=== PATIENT | male | born 1935 | race Hispanic/Latino ===

== ENCOUNTER 2017-06-04 18:08 | Inpatient (IN) | payer MEDICARE, MEDICAID ==
[~2017-06-04 18:08] MED LIST: ISOVUE-370 76%-LOCM 1 ML ONE
[2017-06-04 18:42] LABS: #Basophils 0.1 thou/uL (0.0-0.2); #Lymphocytes 0.9 thou/uL (1.20-3.40); #Monocytes 0.6 thou/uL (0.11-0.59); #Neutrophils 6.3 thou/uL (1.40-6.50); %Basophils 0.8 % (0.0-1.0); %Eosinophils 0.3 % (0.0-10.0); %Lymphocytes 11.2 % (21.0-51.0); %Neutrophils 79.8 % (42.0-75.0); Hemoglobin 15.7 g/dL (14.0-18.0); Mean Corpuscular HGB CONC 35.3 g/dL (32.0-36.0); Mean Corpuscular Hemoglobin 34.5 pg (27.0-31.0); Mean Corpuscular Volume 97.8 fl (80.0-94.0); Mean Platelet Volume 6.7 fL (7.4-10.4); Platelet Count 149 thou/uL (130-400); RBC Distribution Width 12.5 % (11.5-14.5); Red Blood Cell (RBC) Count 4.55 mill/uL (4.70-6.10); White Blood Cell (WBC) Count 7.9 thou/uL (4.8-10.8)
--- NOTE | 2017-06-04 18:46 | RAD ---
PA CHEST: Indication: Fever and cough. IMPRESSION: No focal consolidation to suggest pneumonia. The examination is not appreciably changed from comparis on of 12-03-08. POS: [facility]
[2017-06-04 19:01] LABS: ALT (SGPT) 25 U/L (8-55); AST (SGOT) 23 U/L (5-34); Albumin 4.1 g/dL (3.4-4.8); Alkaline Phosphatase 86 U/L (40-150); Anion Gap 15 mmol/L (10-20); BUN (Urea Nitrogen) 13 mg/dL (8.4-25.7); Bilirubin, Total 0.9 mg/dL (0.2-1.2); CK (CPK) 69 U/L (30-200); Calc. Creatinine Clearance 0 mL/min (70-130); Calcium 8.6 mg/dL (7.8-10.44); Carbon Dioxide 21 mmol/L (23-31); Chloride 101 mmol/L (98-107); Estimated GFR-MDRD 75; Globulin 2.9 g/dL (2.4-3.5); Glucose 154 mg/dL (83-110); Potassium 3.3 mmol/L (3.5-5.1); Sodium 134 mmol/L (136-145)
[2017-06-04 19:11] LABS: CKMB 0.6 ng/mL (0-6.6); Troponin I Less than 0.010 ng/mL (< 0.028)
[2017-06-04 20:35] LABS: Bilirubin Negative (Negative); Blood, Urine Trace (Negative); Clarity CLEAR (Clear); Glucose, Urine (Dipstick) Negative (Negative); Leukocyte Negative (Negative); Nitrite Negative (Negative); Protein, Urine (Dipstick) 100 mg/dL (Neg-Trace); Specific Gravity, Urine 1.016 (1.002-1.036); Urobilinogen 0.2 mg/dL (0.2-1.0); pH, Urine 5.5 (5.0-9.0)
[2017-06-04 20:39] LABS: Bacteria/HPF None Seen HPF (None Seen); Hyaline Casts/LPF 0-3 HYALINE CAST LPF (0-3 Hyaline); Pathc Cast-AUWi Flag 0.29 (0-2.49); RBC/HPF 0-3 HPF (0-3); Squamous Epithelial 0-3 HPF (0-3); WBC/HPF 0-3 HPF (0-3)
[2017-06-04 20:40] LABS: Renal Epithelial None Seen HPF (0-3); Transitional Epithelial NONE SEEN HPF (0-3)
--- NOTE | 2017-06-04 22:15 | CT ---
CT OF THE ABDOMEN AND PELVIS WITH IV CONTRAST: Indication: Fever, abdominal pain, dysuria. FINDINGS: There is bibasilar atelectasis. The liver, pancreas, adrenal glands and kidneys appear within normal limits. No hydronephrosis is melinda dent. The spleen appears within normal limits. Motion artifact slightly imaged detail of the upper ab domen. No drainable fluid collection is evident. The prostate is enlarged measuring 5.8 cm. There is moderate distention of the bladder. There are a few scattered diverticula involving the colon without overt evidence of diverticulitis. There is some fluid density seen within the region of the hepatic flexure and proximal transverse colon, nonspecific. Small bowel is of normal caliber. No drainable fl uid collection is evident. There are scattered degenerative and osteoarthritic change. IMPRESSION: 1. Prominent enlargement of the prostate with moderate distention of the bladder. 2. Fluid density seen within the region of the transverse colon and hepatic flexure may be seen with mild colitis. 3. Diverticulosis. 4. Scattered vascular calcification of the abdominal/pelvic vasculature. POS: [facility]
[2017-06-04] MEDS ORDERED: Calcium Carbonate 500 MG ChewTAB PO PRN (22:33)
[2017-06-04] MEDS ORDERED: Bisacodyl 5 MG TAB PO PRN ×2 (22:33)
[2017-06-04] MEDS ORDERED: Loratadine 10 MG TAB PO PRN (22:33)
[2017-06-04] MEDS ORDERED: traMADol HCl 50 MG TAB PO PRN (22:33)
[2017-06-04] MEDS ORDERED: Senokot 8.6 MG TAB PO PRN ×2 (22:33)
[2017-06-04] MEDS ORDERED: Ondansetron HCl/PF 4 MG/2 ML Vial IVP PRN ×2 (22:33)
[2017-06-04] MEDS ORDERED: cloNIDine 0.1 MG TAB PO PRN (22:33)
[2017-06-04] MEDS ORDERED: Diabetic Tussin 200 MG/10 ML UDCUP PO PRN (22:33)
[2017-06-04] MEDS ORDERED: Acetaminophen 325 MG TAB PO PRN (22:33)
[2017-06-04] MEDS ORDERED: Nitroglycerin 0.4 MG TAB (25 Tab Bottle) SL PRN (22:33)
[2017-06-04] MEDS ORDERED: Mag-Al 1200 mg/1200 mg/30 ML UDCUP PO PRN (22:33)
[2017-06-04] MEDS ORDERED: hydrALAZINE 20 MG/ML VIAL SLOW IVP PRN (22:33)
[2017-06-04] MEDS ORDERED: Benzonatate 100 MG CAP PO PRN (22:33)
[2017-06-04] MEDS ORDERED: metroNIDAZOLE 500 MG/100 ML BAG ONE (22:39)
[2017-06-04 23:00] LABS: Lactic Acid 3.1 mmol/L (0.5-2.2)
[2017-06-04] MEDS ORDERED: Potassium Chloride 40 MEQ in Sodium Chloride 0.9% 500 ML IVPB SCH (23:00)
[2017-06-04 23:10] LABS: Legionella Urinary Ag Negative (Negative); Strep pneumo Urine Ag NEGATIVE (NEGATIVE)
[2017-06-04 23:13] LABS: Troponin I 0.012 ng/mL (< 0.028)
[2017-06-04] MEDS: Sodium Chloride 0.9% 1,000 ML IV SCH (23:46)
[2017-06-05 00:05] VITALS: BMI 21.4
[2017-06-05] MEDS ORDERED: Nitroglycerin 0.4 MG TAB (25 Tab Bottle) SL PRN (01:07)
--- NOTE | 2017-06-05 02:34 | HP ---
DATE OF ADMISSION: 06/04/2017 PRIMARY CARE PHYSICIAN: Dr. Teo Owens. CHIEF COMPLAINT: Diarrhea, abdominal pain, and cough with fever and chills. HISTORY OF PRESENTING ILLNESS: Mr. Arthur is a pleasant 82-year-old male with past medical history of hypertension and dyslipidemia, who presented to the ER with above-mentioned complaints. History is mainly obtained by the patient and daughter with the help of an resource conservation manager present in the room. The patient and family is mainly Urdu speaking only. According to them, the patient started to have clear productive cough for the last 4 days, which has gotten worse. He also feels that his bladder is full and his abdomen is full. He started to have fe kimberly with chills and then subsequently started to have diarrhea with nausea for the last 4 days. He i s not having any vomiting. He denies any hematochezia or melena. He denies any sick contacts. No r ecent travels and no recent antibiotics. He also has some associated shortness of breath with exerti on. He could not report any relieving factors. He has also noticed himself to be having some wheezi ng. Upon presentation to the emergency room, he was febrile with a temperature of 102.1 and tachycardic w ith a heart rate of 113. His blood pressure was 130/81 and he was saturating 98% on room air. He un derwent general workup including a chest x-ray, which was unremarkable. He had a 12-lead EKG done, w hich showed sinus tachycardia with first-degree AV block, otherwise unremarkable. Because of the com plaints of diarrhea and abdominal pain, he also underwent a CT scan of the abdomen and pelvis with co ntrast, which showed mild colitis and distended urinary bladder with enlarged prostate. He also has elevated lactic acid at 3.0. He does not have any absolute leukocytosis, but his neutrophils are paula vated to 79%. Urinalysis was unremarkable. Given the presence of fever, tachycardia, and presenting symptoms of cough and colitis: He is now being admitted with a presumptive diagnosis of sepsis like ly due to colitis as well as pneumonia. He has received vancomycin, levofloxacin, and Flagyl in the emergency room and is hemodynamically stable. PAST MEDICAL HISTORY: 1. History of seizure disorder are noticed from suspected AV malformation in the past. 2. Coronary artery disease with coronary artery bypass graft. 3. Dyslipidemia. 4. Hypertension. 5. Benign prostatic hypertrophy. PAST SURGICAL HISTORY: Coronary artery bypass graft, 2009. PSYCHIATRIC HISTORY: No anxiety, no depression. SOCIAL HISTORY: He denies any drug, tobacco, or alcohol abuse. He lives with his family. FAMILY HISTORY: Mother of stroke and father of liver disease. ALLERGIES: No known medication allergies. CURRENT MEDICATIONS: As per the ER record as follows, Keppra 500 mg p.o. b.i.d., amlodipine 5 mg juan carlos ly, carvedilol 3.125 mg b.i.d., nitroglycerin sublingual as needed, Plavix 75 mg daily, doxazosin 2 m g daily, Lipitor 10 mg daily, losartan 100 mg daily. REVIEW OF SYSTEMS: The following complete review of systems was negative, except for those mentioned in the history and physical: Constitutional: Weight loss or gain, ability to conduct usual activit ies. Skin: Rash, itching. Eyes: Double vision, pain. ENT/Mouth: Nose bleeding, neck stiffness, pain, tenderness. Cardiovascular: Palpitations, dyspnea on exertion, orthopnea. Respiratory: Shor tness of breath, wheezing, cough, hemoptysis, fever, or night sweats. Gastrointestinal: Poor appeti te, abdominal pain, heartburn, nausea, vomiting, constipation, or diarrhea. Genitourinary: Urgency, frequency, dysuria, nocturia. Musculoskeletal: Pain, swelling. Neurologic/Psychiatric: Anxiety, depression. Allergy/Immunologic: Skin rash, bleeding tendency. PHYSICAL EXAMINATION: VITAL SIGNS: Upon presentation blood pressure 130/81, pulse of 113, respirations 21, temperature 102 .1, saturating 98% on room air. GENERAL: The patient is sitting up at the side of the bed and is having some abdominal distention an d the urinary bladder distention and feels the urge to go, use the restroom. He is otherwise comfort able and in no acute distress. He does not appear to be toxic. HEENT: Mucous membranes are slightly dry. No oropharyngeal exudate or erythema. Head is normocepha lic, atraumatic. Pupils are equal, reactive to light and accommodation. Extraocular movements intac t. NECK: Supple without any lymphadenopathy, JVD, or bruit. CHEST: Clear to auscultation without any wheezing, rales, or rhonchi. HEART: Rhythm is regular without any murmur, rubs, or gallops. ABDOMEN: Slightly tender to palpation and appears somewhat distended, but no guarding, rebound, or r igidity. Positive bowel sounds heard. EXTREMITIES: Free of any cyanosis, clubbing, or edema. NEUROLOGIC: Nonfocal. SKIN: Free of any rashes or bruises. Feels warm and dry to touch. PSYCHIATRIC: Normal affect. LABORATORY EXAMINATION: A 12-lead EKG reviewed by myself shows sinus tachycardia at 111 beats per mi nute with first-degree AV block, otherwise no ST or T-wave changes. Chest x-ray by my review does no t reveal any specific infiltrates, edema, or effusions. CT scan of the abdomen and pelvis shows mild colitis and significant prostatic enlargement with distended urinary bladder. His CBC shows WBCs at 7.9 with 79% neutrophils, otherwise unremarkable. Serum chemistry shows sodium 134, potassium 3.3, bicarbonate 21, blood sugar 154. Lactic acid 3.0, otherwise unremarkable. His BNP: His cardiac enz ymes as well as TSH are normal. Urinalysis showed trace blood and proteinuria. Urinary Legionella a nd pneumococcal antigens are negative. IMPRESSION AND PLAN: 1. Sepsis. It is likely either secondary to colitis as well as pneumonia, though the chest x-ray do es not suggest it. Also, urine infection needs to be ruled out, as he has significant prostatic enla rgement and seems to be retaining urine. Urine culture and blood cultures have been obtained and we will follow the results. We will also check stools for Clostridium difficile and obtain stool cultur e as well. Start him on empiric antibiotics to cover for both lung and abdominal pathology with levo floxacin and Flagyl. Start him on IV fluids with close clinical monitoring. He will be admitted to telemetry given his tachycardia. 2. Diarrhea as above, check his stool analysis and started on empiric IV antibiotics. 3. History of coronary artery disease. We will restart his home medication of the beta-nimesh, sta tin, Plavix, and ARB. 4. Benign prostatic hypertrophy. The patient needs to follow up as an outpatient. He might need a Bosch catheter while this hospitalization. 5. History of hypertension. Resume home medication of amlodipine: Carvedilol as well as losartan a nd doxazosin. 6. History of seizure disorder. No breakthrough seizures since the last time he was here in 2016. He is stable on Keppra 500 mg p.o. b.i.d. and we will continue that. 7. Deep venous thrombosis and gastrointestinal prophylaxis. 8. Code status: FULL CODE. Discussed with the patient. DISPOSITION: Mr. Arthur is currently being admitted to hospital for sepsis and colitis with possibl e pneumonia as well. Estimated length of stay is at least 2-3 midnight. Further management will dep end upon his hospital course.
[2017-06-05 04:21] LABS: #Lymphocytes 1.2 thou/uL (1.20-3.40); #Monocytes 0.5 thou/uL (0.11-0.59); #Neutrophils 4.7 thou/uL (1.40-6.50); %Basophils 0.3 % (0.0-1.0); %Eosinophils 0.2 % (0.0-10.0); %Lymphocytes 18.8 % (21.0-51.0); %Monocytes 8.1 % (0.0-10.0); %Neutrophils 72.5 % (42.0-75.0); Hemoglobin 14.4 g/dL (14.0-18.0); Mean Corpuscular HGB CONC 34.7 g/dL (32.0-36.0); Mean Corpuscular Hemoglobin 34.2 pg (27.0-31.0); Mean Corpuscular Volume 98.6 fl (80.0-94.0); Mean Platelet Volume 7.4 fL (7.4-10.4); Platelet Count 151 thou/uL (130-400); RBC Distribution Width 12.6 % (11.5-14.5); Red Blood Cell (RBC) Count 4.21 mill/uL (4.70-6.10); White Blood Cell (WBC) Count 6.5 thou/uL (4.8-10.8)
[2017-06-05 04:42] LABS: Anion Gap 13 mmol/L (10-20); BUN (Urea Nitrogen) 11 mg/dL (8.4-25.7); Calc. Creatinine Clearance 60 mL/min (70-130); Calcium 8.2 mg/dL (7.8-10.44); Carbon Dioxide 23 mmol/L (23-31); Chloride 104 mmol/L (98-107); Estimated GFR-MDRD 83; Glucose 105 mg/dL (83-110); Potassium 3.6 mmol/L (3.5-5.1); Sodium 136 mmol/L (136-145)
[2017-06-05] MEDS: metroNIDAZOLE 500 MG in Premix Bag 1 BAG IVPB SCH ×3 (05:36→22:00)
[2017-06-05] MEDS: Carvedilol 3.125 MG TAB PO SCH ×2 (08:09→16:39)
[2017-06-05] MEDS: Amlodipine 5 MG TAB PO SCH (08:09)
[2017-06-05] MEDS: Enoxaparin Sodium 40 MG/0.4 ML SYRINGE SC SCH (08:10)
[2017-06-05] MEDS: Losartan 25 MG TAB PO SCH (08:10)
[2017-06-05] MEDS: Doxazosin 2 MG TAB PO SCH (08:10)
[2017-06-05] MEDS: Aspirin 81 mg Enteric Coated Tablet PO SCH (08:10)
[2017-06-05] MEDS: levETIRAcetam 500 MG TAB PO SCH ×2 (08:10→20:48)
[2017-06-05] MEDS: Saccharomyces boulardii 250 MG CAP PO SCH (08:10)
[2017-06-05] MEDS: guaiFENesin ER 600 MG TAB PO SCH ×2 (08:10→20:47)
[2017-06-05] MEDS: Famotidine/PF 20 mg/2ml Vial SLOW IVP SCH ×2 (08:10→20:47)
[2017-06-05] MEDS ORDERED: Prevnar 13-Val Conj/PF 0.5 ML SYRINGE IM ONE (09:00)
[2017-06-05] MEDS: Sodium Chloride 0.9% 1,000 ML IV SCH ×3 (10:00→20:56)
[2017-06-05] MEDS ORDERED: Loperamide HCl 2 MG CAP PO PRN (11:47)
--- NOTE | 2017-06-05 11:50 | PDOC.PN ---
- Subjective Encounter Start Date: 06/05/17 Encounter Start Time: 07:00 Pt seen for followup re: sepsis. Denies chest pain, had diarrhea. No nausea. No fevers. Veterans Adviser used for this encounter. - Objective MAR Reviewed: Yes Vital Signs & Weight: Vital Signs (12 hours) Temp Pulse Pulse Resp BP Pulse Ox 06/05/17 10:42 98.4 F 06/05/17 09:37 96 06/05/17 08:00 100.1 F H 94 17 06/05/17 07:50 100.1 F H 94 17 166/81 H 92 L 06/05/17 06:20 98.8 F 88 20 135/79 93 L Weight Weight 149 lb 4 oz I&O: 06/04/17 06/05/17 06/06/17 06:59 06:59 06:59 Intake Total 800 Output Total 400 Balance 400 Result Diagrams: 06/05/17 01:43 06/05/17 01:43 Phys Exam - Physical Examination Constitutional: NAD HEENT: PERRLA, moist MMs, sclera anicteric, oral pharynx no lesions Neck: no nodes, no JVD, supple, full ROM Respiratory: no wheezing, no rales, no rhonchi, clear to auscultation bilateral Cardiovascular: RRR, no rub Gastrointestinal: soft, non-tender, no distention, positive bowel sounds Neurological: moves all 4 limbs Psychiatric: normal affect Dx/Plan (1) Sepsis Code(s): A41.9 - SEPSIS, UNSPECIFIED ORGANISM Status: Acute Comment: continue antibiotics (2) Diarrhea Code(s): R19.7 - DIARRHEA, UNSPECIFIED Status: Acute Comment: await stool studies (3) CAD (coronary artery disease) Code(s): I25.10 - ATHSCL HEART DISEASE OF [place] CORONARY ARTERY W/O ANG PCTRS Status: Chronic Comment: stable (4) HTN (hypertension) Code(s): I10 - ESSENTIAL (PRIMARY) HYPERTENSION Status: Chronic Comment: Monitor vital signs, titrate antihypertensives as needed (5) Bronchitis Code(s): J40 - BRONCHITIS, NOT SPECIFIED ACUTE OR CHRONIC Status: Acute Comment: continue antibiotics (6) Dyslipidemia Code(s): E78.5 - HYPERLIPIDEMIA, UNSPECIFIED Status: Chronic Comment: continue statin (7) BPH (benign prostatic hyperplasia) Code(s): N40.0 - BENIGN PROSTATIC HYPERPLASIA WITHOUT LOWER URINRY TRACT SYMP Status: Chronic Comment: Continue doxazosin (8) Seizure disorder Code(s): G40.909 - EPILEPSY, UNSP, NOT INTRACTABLE, WITHOUT STATUS EPILEPTICUS Status: Chronic Comment: On keppra - Plan * . Review of Systems - Review of Systems Constitutional: weakness. negative: fever, chills, sweats, malaise Respiratory: negative: Cough, Shortness of Breath, Hemoptysis, SOB with Excertion, Pleuritic Pain, Wheezing Cardiovascular: negative: chest pain, palpitations, orthopnea, paroxysmal nocturnal dyspnea, edema, light headedness Gastrointestinal: Diarrhea. negative: Nausea, Vomiting, Abdominal Pain, Constipation, Melena, Hematochezia Genitourinary: negative: Dysuria, Frequency, Incontinence, Hematuria, Retention - Medications/Allergies Allergies/Adverse Reactions: Allergies Allergy/AdvReac Type Severity Reaction Status Date / Time No Known Drug Allergies Allergy Verified 06/04/17 23:37 Medications: Current Medications Acetaminophen (Tylenol) 650 mg PO Q4H PRN PRN Reason: Headache/Fever or Pain Last Admin: 06/05/17 08:19 Dose: 650 mg Al Hydroxide/Mg Hydroxide (Maalox) 30 ml PO Q6H PRN PRN Reason: Heartburn or Indigestion Albuterol/Ipratropium (Duoneb) 3 ml NEB Q6H PRN PRN Reason: SOB &/or Wheezing Amlodipine Besylate (Norvasc) 5 mg PO QAM [facility] Last Admin: 06/05/17 08:09 Dose: 5 mg Aspirin (Ecotrin) 81 mg PO DAILY [facility] Last Admin: 06/05/17 08:10 Dose: 81 mg Atorvastatin Calcium (Lipitor) 10 mg PO HS [facility] Benzonatate (Tessalon) 100 mg PO Q4H PRN PRN Reason: Cough Betamethasone Valerate (Betamethasone Valerate) 1 ml TOP BID [facility] Bisacodyl (Dulcolax) 10 mg PO DAILYPRN PRN PRN Reason: Constipation Bisacodyl (Dulcolax) 10 mg PO DAILYPRN PRN PRN Reason: Constipation Calcium Carbonate (Tums) 1,000 mg PO Q4H PRN PRN Reason: Heartburn or Indigestion Carvedilol (Coreg) 3.125 mg PO BID-[facility] Last Admin: 06/05/17 08:09 Dose: 3.125 mg Clonidine (Catapres) 0.1 mg PO Q4H PRN PRN Reason: Systolic BP > 160 Doxazosin Mesylate (Cardura) 2 mg PO DAILY [facility] Last Admin: 06/05/17 08:10 Dose: 2 mg Enoxaparin Sodium (Lovenox) 40 mg SC 0900 [facility] Last Admin: 06/05/17 08:10 Dose: 40 mg Famotidine (Pepcid) 20 mg SLOW IVP Q12HR [facility] Last Admin: 06/05/17 08:10 Dose: 20 mg Guaifenesin (Robitussin Sf) 200 mg PO Q4H PRN PRN Reason: Cough Guaifenesin (Mucinex) 1,200 mg PO Q12HR [facility] Last Admin: 06/05/17 08:10 Dose: 1,200 mg Hydralazine HCl (Apresoline) 10 mg SLOW IVP Q4H PRN PRN Reason: Systolic BP > 170 Levofloxacin 500 mg/ Device 100 mls @ 100 mls/hr IVPB 1800 [facility] Metronidazole 500 mg/ Device 100 mls @ 100 mls/hr IVPB Q8HR [facility] Last Admin: 06/05/17 05:36 Dose: 100 mls Sodium Chloride (Normal Saline 0.9%) 1,000 mls @ 100 mls/hr IV .Q10H [facility] Last Admin: 06/05/17 11:35 Dose: 1,000 mls Levetiracetam (Keppra) 500 mg PO BID [facility] Last Admin: 06/05/17 08:10 Dose: 500 mg Loperamide HCl (Imodium) 2 mg PO PRN PRN PRN Reason: Diarrhea/Loose Stools Loperamide HCl (Imodium) 2 mg PO ONE [facility] Loratadine (Claritin) 10 mg PO DAILYPRN PRN PRN Reason: Sinus Symptoms Losartan Potassium (Cozaar) 100 mg PO DAILY [facility] Last Admin: 06/05/17 08:10 Dose: 100 mg Nitroglycerin (Nitrostat) 0.4 mg SL Q5MIN PRN PRN Reason: Chest Pain Nitroglycerin (Nitrostat) 0.4 mg SL Q5MIN PRN PRN Reason: Chest Pain Ondansetron HCl (Zofran) 4 mg IVP Q6H PRN PRN Reason: Nausea/Vomiting Ondansetron HCl (Zofran) 4 mg IVP Q6H PRN PRN Reason: Nausea/Vomiting Saccharomyces Boulardii (Florastor) 250 mg PO DAILY [facility] Last Admin: 06/05/17 08:10 Dose: 250 mg Senna (Senokot) 2 tab PO HSPRN PRN PRN Reason: Constipation Senna (Senokot) 2 tab PO HSPRN PRN PRN Reason: Constipation Tramadol HCl (Ultram) 50 mg PO Q4H PRN PRN Reason: Moderate Pain (4-6)
[2017-06-05] MEDS ORDERED: Loperamide HCl 2 MG CAP PO SCH (12:00)
[2017-06-05] MEDS: Betamethasone Val 0.1% Lotion 60 ML BOT TOP SCH (14:03)
[2017-06-05] MEDS ORDERED: Atorvastatin Calcium 10 MG TAB PO SCH (21:00)
[2017-06-06] MEDS: Betamethasone Val 0.1% Lotion 60 ML BOT TOP SCH ×2 (01:21→08:46)
[2017-06-06] MEDS: metroNIDAZOLE 500 MG in Premix Bag 1 BAG IVPB SCH ×2 (01:30→06:38)
[2017-06-06] MEDS: Sodium Chloride 0.9% 1,000 ML IV SCH ×2 (04:45→06:40)
[2017-06-06] MEDS: Carvedilol 3.125 MG TAB PO SCH (08:40)
[2017-06-06] MEDS: Amlodipine 5 MG TAB PO SCH (08:40)
[2017-06-06] MEDS: Aspirin 81 mg Enteric Coated Tablet PO SCH (08:41)
[2017-06-06] MEDS: Doxazosin 2 MG TAB PO SCH (08:42)
[2017-06-06] MEDS: Enoxaparin Sodium 40 MG/0.4 ML SYRINGE SC SCH (08:42)
[2017-06-06] MEDS: Famotidine/PF 20 mg/2ml Vial SLOW IVP SCH (08:43)
[2017-06-06] MEDS: guaiFENesin ER 600 MG TAB PO SCH (08:43)
[2017-06-06] MEDS: Losartan 25 MG TAB PO SCH (08:44)
[2017-06-06] MEDS: levETIRAcetam 500 MG TAB PO SCH (08:44)
[2017-06-06] MEDS: Saccharomyces boulardii 250 MG CAP PO SCH (08:45)
[2017-06-06 09:13] LABS: #Eosinphils 0.1 thou/uL (0.0-0.7); #Lymphocytes 1.6 thou/uL (1.20-3.40); #Monocytes 0.8 thou/uL (0.11-0.59); #Neutrophils 2.9 thou/uL (1.40-6.50); %Basophils 0.8 % (0.0-1.0); %Eosinophils 0.9 % (0.0-10.0); %Lymphocytes 30.1 % (21.0-51.0); %Monocytes 14.1 % (0.0-10.0); Hemoglobin 13.7 g/dL (14.0-18.0); Mean Corpuscular HGB CONC 34.9 g/dL (32.0-36.0); Mean Corpuscular Hemoglobin 34.1 pg (27.0-31.0); Mean Corpuscular Volume 97.8 fl (80.0-94.0); Mean Platelet Volume 6.9 fL (7.4-10.4); Platelet Count 150 thou/uL (130-400); RBC Distribution Width 12.4 % (11.5-14.5); Red Blood Cell (RBC) Count 4.02 mill/uL (4.70-6.10); White Blood Cell (WBC) Count 5.4 thou/uL (4.8-10.8)
[2017-06-06 09:33] LABS: Anion Gap 13 mmol/L (10-20); BUN (Urea Nitrogen) 8 mg/dL (8.4-25.7); Calc. Creatinine Clearance 69 mL/min (70-130); Calcium 8.4 mg/dL (7.8-10.44); Carbon Dioxide 22 mmol/L (23-31); Chloride 106 mmol/L (98-107); Estimated GFR-MDRD Greater than 90; Glucose 93 mg/dL (83-110); Potassium 3.1 mmol/L (3.5-5.1); Sodium 138 mmol/L (136-145)
[2017-06-06 11:48] VITALS: BP 120/62; TEMP 97.6
[2017-06-06] MEDS ORDERED: Potassium Chloride 20 MEQ TAB PO SCH (12:30)
--- NOTE | 2017-06-06 21:33 | DIS ---
DATE OF ADMISSION: 06/04/2017 DATE OF DISCHARGE: 06/06/2017 PRIMARY CARE PHYSICIAN: Teo Owens M.D. DISCHARGE DIAGNOSES: 1. Sepsis. 2. Bronchitis. 3. Diarrhea. 4. Hypokalemia. DISCHARGE MEDICATIONS: He is being discharged home on levofloxacin 500 mg daily for 7 days. Otherwi se, his home medications were resumed as dictated on history and physical note from 06/05/2017. CONDITION OF PATIENT ON THE DAY OF DISCHARGE: Stable. I assessed Mr. Arthur on the day of discharg e. He denies any chest pain or shortness of breath. PHYSICAL EXAMINATION: VITAL SIGNS: Stable. HEART: S1 and S2 are heard, regular. LUNGS: Clear to auscultation bilaterally. HOSPITAL COURSE: Mr. Arthur is a pleasant 82-year-old gentleman who was admitted to [facility] on 06/04/2017 for sepsis secondary to bronchitis and diarrhea. He was treated wit h intravenous antibiotics and subsequently oral antibiotics. Stool Clostridium difficile toxin test was negative. He also tested negative for Campylobacter antigen and Shiga toxin test. Preliminary s tool culture and preliminary blood cultures are negative at the time of this dictation. He will need to follow up with his primary care physician for these results. Final urine culture was negative. He improved clinically. He has been started on Imodium p.r.n. He is being discharged home in a stab le condition. Many thanks for allowing me to participate in your patient's care. Please feel free to contact me wi th any questions or concerns. LABORATORY DATA: On the day of discharge, he has sodium 138, potassium 3.1, which is being replaced, and creatinine 0.76. His white count is 5,400, hemoglobin 13.7, platelet count 150,000. DISCHARGE DESTINATION: Home. TOTAL AMOUNT OF TIME SPENT COORDINATING THIS DISCHARGE: 33 minutes.
[2017-06-08 18:11] LABS: Norovirus GI Negative (Negative); Norovirus GII Negative (Negative)
--- NOTE | 2017-07-08 23:24 | EKG ---
Test Reason : Blood Pressure : / mmHG Vent. Rate : 111 BPM Atrial Rate : 111 BPM P-R Int : 216 ms QRS Dur : 080 ms QT Int : 304 ms P-R-T Axes : 016 008 028 degrees QTc Int : 413 ms Sinus tachycardia with 1st degree A-V block Possible Inferior infarct , age undetermined Abnormal ECG Confirmed by JEN HAMILTON ([id number]), brands editor DIOMEDES GA ([id number]) on 07/08/2017 11:24:31 PM Referred By: Confirmed By:JEN HAMILTON
== END 2017-06-06 13:09 | disposition home or self-care (01) | DRG 872 ==
LOC: ERS 18:08 → 2NO 22:35 → ONC 06-05 10:51
PROVIDERS: ADMIT Internal Medicine; ATTEND Internal Medicine
DX: J20.9 Acute bronchitis, unspecified; R19.7 Diarrhea, unspecified; G40.909 Epilepsy, unspecified, not intractable, without status epilepticus; A41.9 Sepsis, unspecified organism; Z95.1 Presence of aortocoronary bypass graft; I10 Essential (primary) hypertension; N40.0 Benign prostatic hyperplasia without lower urinary tract symptoms; E87.6 Hypokalemia; E78.5 Hyperlipidemia, unspecified; Z86.73 Personal history of transient ischemic attack (TIA), and cerebral infarction without residual deficits; I25.10 Atherosclerotic heart disease of native coronary artery without angina pectoris
CPT/HCPCS: 36415; 71045; 74177; 80048; 80053; 81003; 81015; 82550; 82553; 83605; 83735; 83880; 84443; 84484; 85025; 87015; 87040; 87045; 87046; 87077; 87086; 87186; 87206; 87324; 87449; 87798; 87804; 87899; 90471; 90670; 93005; 94760; 96365; 96366; 96367; G0009; G8978-GP-CK; G8979-GP-CK; G8980-GP-CK; G8987-GO-CI; G8988-GO-CH; J1650; J1956; J3370; J3480; J7050; S0028

== ENCOUNTER 2017-07-22 08:27 | Inpatient (IN) | payer MEDICARE, MEDICAID ==
[2017-07-22 09:04] LABS: #Lymphocytes 0.6 thou/uL (1.20-3.40); #Monocytes 0.6 thou/uL (0.11-0.59); %Basophils 0.4 % (0.0-1.0); %Eosinophils 0.4 % (0.0-10.0); %Lymphocytes 4.9 % (21.0-51.0); %Monocytes 5.7 % (0.0-10.0); %Neutrophils 88.7 % (42.0-75.0); Hemoglobin 15.7 g/dL (14.0-18.0); Mean Corpuscular HGB CONC 34.9 g/dL (32.0-36.0); Mean Corpuscular Hemoglobin 34.8 pg (27.0-31.0); Mean Corpuscular Volume 99.7 fl (80.0-94.0); Mean Platelet Volume 7.3 fL (7.4-10.4); Platelet Count 173 thou/uL (130-400); RBC Distribution Width 12.8 % (11.5-14.5); White Blood Cell (WBC) Count 11.2 thou/uL (4.8-10.8)
[2017-07-22 09:35] LABS: ALT (SGPT) 16 U/L (8-55); AST (SGOT) 21 U/L (5-34); Albumin 4.3 g/dL (3.4-4.8); Alkaline Phosphatase 96 U/L (40-150); Anion Gap 11 mmol/L (10-20); BUN (Urea Nitrogen) 13 mg/dL (8.4-25.7); Bilirubin, Total 1.2 mg/dL (0.2-1.2); Calc. Creatinine Clearance 0 mL/min (70-130); Calcium 9.1 mg/dL (7.8-10.44); Carbon Dioxide 23 mmol/L (23-31); Chloride 105 mmol/L (98-107); Estimated GFR-MDRD 66; Globulin 2.9 g/dL (2.4-3.5); Glucose 127 mg/dL (83-110); Potassium 3.6 mmol/L (3.5-5.1); Protein, Total 7.2 g/dL (5.8-8.1); Sodium 135 mmol/L (136-145)
[2017-07-22] MEDS ORDERED: Ibuprofen 200 MG TAB ONE (09:45)
--- NOTE | 2017-07-22 10:12 | RAD ---
RADIOGRAPH CHEST 1 VIEW: HISTORY: 82-year-old male with cough and fever. FINDINGS: The thoracic aorta is tortuous and ectatic. There is no evidence of air space density, pneumothorax, or pulmonary edema. The lateral costophrenic angles are sharp. IMPRESSION: 1. No acute pulmonary findings. 2. Ectasia of thoracic aorta. shanti [] POS: [facility]
[2017-07-22 10:45] LABS: Bilirubin Negative (Negative); Blood, Urine Large (Negative); Clarity CLOUDY (Clear); Glucose, Urine (Dipstick) Negative (Negative); Leukocyte Large (Negative); Nitrite Negative (Negative); Protein, Urine (Dipstick) 100 mg/dL (Neg-Trace); Specific Gravity, Urine 1.012 (1.002-1.036); Urobilinogen 0.2 mg/dL (0.2-1.0)
[2017-07-22 10:47] LABS: Bacteria/HPF None Seen HPF (None Seen); Hyaline Casts/LPF 4-6 HYALINE CAST LPF (0-3 Hyaline); Pathc Cast-AUWi Flag 1.16 (0-2.49); RBC/HPF GREATER THAN 50-TNTC HPF (0-3); Squamous Epithelial None Seen HPF (0-3)
[2017-07-22] MEDS ORDERED: cefTRIAXone\\ROCEPHIN 2 GM VIAL ONE (11:04)
[2017-07-22] MEDS ORDERED: Gentamicin Sulfate 400 MG in Sodium Chloride 0.9% 100 ML IVPB SCH (11:30)
[2017-07-22 12:57] LABS: Lactic Acid 1.3 mmol/L (0.5-2.2)
[2017-07-22] MEDS ORDERED: Acetaminophen 325 MG TAB PO PRN (13:14)
[2017-07-22] MEDS ORDERED: Ondansetron HCl/PF 4 MG/2 ML Vial IVP PRN (13:14)
[2017-07-22] MEDS ORDERED: Ondansetron ODT 4 MG TAB SL PRN (13:14)
[2017-07-22] MEDS ORDERED: Guaifenesin DM 100-10/5 ML UDCUP PO PRN (13:24)
[2017-07-22] MEDS ORDERED: Nitroglycerin 0.4 MG TAB (25 Tab Bottle) SL PRN (13:24)
[2017-07-22] MEDS ORDERED: Mag-Al 1200 mg/1200 mg/30 ML UDCUP PO PRN (13:24)
[2017-07-22 13:33] VITALS: BMI 29.1
[2017-07-22] MEDS ORDERED: Levofloxacin 750 mg/D5W 500 MG in Premix Bag 1 BAG IVPB SCH (14:00)
[2017-07-22] MEDS: Sodium Chloride 0.9% 1,000 ML IV SCH ×2 (14:06→20:01)
[2017-07-22] MEDS ORDERED: Cefepime 1 GM in Sodium Chloride 0.9% 100 ML IVPB SCH (15:00)
[2017-07-22] MEDS: Atorvastatin Calcium 10 MG TAB PO SCH (19:55)
[2017-07-22] MEDS: levETIRAcetam 500 MG TAB PO SCH (19:55)
[2017-07-22] MEDS: Tamsulosin HCl 0.4 MG CAP PO SCH (19:55)
[2017-07-22] MEDS: Carvedilol 3.125 MG TAB PO SCH (19:55)
--- NOTE | 2017-07-22 20:08 | HP ---
REASON FOR ADMISSION: Sepsis, urinary tract infection, recent instrumentation with cystoscopy. HISTORY OF PRESENT ILLNESS: The patient gives history of having had cystoscopy with likely biopsy done by Dr. Tomlin on Monday. He says he had trouble passing urine and likely had prostate enlargement, hence the reason why cystoscopy was done. This morning around 5:00 a.m., the patient developed fever of 103 degrees. He took a Tylenol tablet and around 8:00 a.m., the family checked his temperature and it was still high. He has had burning urination. The patient has some cough with expectoration as well. He normally ambulates by himself. He lives with his . PAST MEDICAL AND SURGICAL HISTORY: History of benign prostatic hypertrophy; hypertension; dyslipidemia; history of cerebrovascular accident with no residual weakness; cardiac catheterization done 12 years ago, which was negative per family; and seizure disorder. No prior surgical history except for cardiac catheterization and cystoscopy done on Monday. CURRENT MEDICATIONS: Keppra 500 mg p.o. twice daily, Norvasc 5 mg p.o. q.a.m., Coreg 3.125 mg p.o. twice daily, nitroglycerin sublingual p.r.n., Plavix 75 mg daily, doxazosin 2 mg p.o. daily, Lipitor 10 mg p.o. daily, Cozaar 100 mg p.o. daily, Flomax 0.4 mg p.o. twice daily, finasteride 5 mg p.o. daily. PERSONAL HISTORY: Does not abuse alcohol or drugs. No history of smoking. Lives with his , ambulates by himself. FAMILY HISTORY: Both parents in their 70s. Mother had history of stroke. CODE STATUS: FULL. Power of county attorney is his . REVIEW OF SYSTEMS: The following complete review of systems was negative, unless otherwise mentioned in the HPI or below: Constitutional: Weight loss or gain, ability to conduct usual activities. Skin: Rash, itching. Eyes: Double vision, pain. ENT/Mouth: Nose bleeding, neck stiffness, pain, tenderness. Cardiovascular: Palpitations, dyspnea on exertion, orthopnea. Respiratory: Shortness of breath, wheezing, cough, hemoptysis, fever or night sweats. Gastrointestinal: Poor appetite, abdominal pain, heartburn, nausea, vomiting, constipation, or diarrhea. Genitourinary: Urgency, frequency, dysuria, nocturia. Musculoskeletal: Pain, swelling. Neurologic/Psychiatric: Anxiety, depression. Allergy/Immunologic: Skin rash, bleeding tendency. PHYSICAL EXAMINATION: GENERAL: The patient is an 82-year-old male, who is currently not in any acute distress. VITAL SIGNS: Blood pressure 108/70, pulse 114 per minute, respiratory rate is 20 per minute, temperature 102.1 degrees Fahrenheit, saturating 99% on room air. NECK: Supple, no elevated JVD. HEENT: Eyes: Extraocular muscles intact. Pupils reacting to light. Oral cavity: Mucous membranes are dry. No exudates or congestion. CARDIOVASCULAR: S1, S2 heard. Regular rhythm. RESPIRATORY: Air entry 1+ bilaterally. No rales or rhonchi. ABDOMEN: Soft, bowel sounds heard. No tenderness, rigidity or guarding. Mild suprapubic tenderness plus. EXTREMITIES: No peripheral edema or calf tenderness. VASCULAR SYSTEM: Peripheral pulses 1+ bilateral. No ischemic ulcerations or gangrene. CENTRAL NERVOUS SYSTEM: No gross focal deficits seen. The patient is alert and oriented well. PSYCHIATRIC: The patient's mood is euthymic. No hallucinations or delusions. LABORATORY DATA: White count of 11, hemoglobin and hematocrit 15 and 44, platelet count 173, MCV is 99 with 88% neutrophils. Sodium 135, BUN 13, creatinine 1.0. Serum glucose 127. Lactic acid 2.4. Liver enzymes within normal limits. Albumin is 4.3. UA shows large amount of blood with large leukoesterase, greater than 50 wbc's and red blood cells as well. Influenza A and B antigens are negative. IMAGING: Chest x-ray done shows no acute infiltrate. CLINICAL IMPRESSION AND PLAN: The patient will be admitted to medical floor for sepsis, urinary tract infection with recent instrumentation including cystoscopy with likely biopsy done by Dr. Tomlin. Blood and urine cultures have been obtained in the ER. We will place him on cefepime and Levaquin for dual gram-negative coverage for now until cultures are back. He has received a total of 2.5 liters of normal saline in the ER along with gentamicin, ceftriaxone and vancomycin. We will not overload him at present and continue him on normal saline at 70 mL per hour. We will continue his aspirin, Lipitor, Coreg, Norvasc, Proscar, Flomax, and Keppra for now. We will continue to closely monitor him on medical floor. LOLA
[2017-07-22] MEDS ORDERED: Prevnar 13-Val Conj/PF 0.5 ML SYRINGE IM ONE (21:00)
[2017-07-23] MEDS: Acetaminophen 325 MG TAB PO PRN ×2 (00:28→15:20)
[2017-07-23] MEDS: Cefepime 0.5 GM, Admixture Fee 1 EACH in Sodium Chloride 0.9% 100 ML IVPB SCH ×2 (02:57→14:09)
[2017-07-23 05:36] LABS: #Lymphocytes 0.8 thou/uL (1.20-3.40); #Monocytes 0.5 thou/uL (0.11-0.59); #Neutrophils 7.6 thou/uL (1.40-6.50); %Basophils 0.2 % (0.0-1.0); %Eosinophils 0.3 % (0.0-10.0); %Lymphocytes 8.5 % (21.0-51.0); %Monocytes 5.3 % (0.0-10.0); %Neutrophils 85.7 % (42.0-75.0); Hemoglobin 13.3 g/dL (14.0-18.0); Mean Platelet Volume 7.4 fL (7.4-10.4); Platelet Count 138 thou/uL (130-400); RBC Distribution Width 12.9 % (11.5-14.5); White Blood Cell (WBC) Count 8.8 thou/uL (4.8-10.8)
[2017-07-23 05:43] LABS: Anion Gap 8 mmol/L (10-20); BUN (Urea Nitrogen) 11 mg/dL (8.4-25.7); Calc. Creatinine Clearance 64 mL/min (70-130); Calcium 8.1 mg/dL (7.8-10.44); Carbon Dioxide 26 mmol/L (23-31); Chloride 109 mmol/L (98-107); Estimated GFR-MDRD 90; Glucose 99 mg/dL (83-110); Potassium 3.1 mmol/L (3.5-5.1); Sodium 140 mmol/L (136-145)
[2017-07-23] MEDS: Finasteride 5 MG TAB PO SCH (08:36)
[2017-07-23] MEDS: Doxazosin 2 MG TAB PO SCH (08:36)
[2017-07-23] MEDS: Enoxaparin Sodium 30 MG/0.3 ML SYRINGE SC SCH (08:37)
[2017-07-23] MEDS: levETIRAcetam 500 MG TAB PO SCH ×2 (08:37→20:52)
[2017-07-23] MEDS: Amlodipine 5 MG TAB PO SCH (08:37)
[2017-07-23] MEDS: Aspirin 81 mg Enteric Coated Tablet PO SCH (08:37)
[2017-07-23] MEDS: Carvedilol 3.125 MG TAB PO SCH ×2 (08:37→20:51)
[2017-07-23] MEDS: Famotidine 20 MG TAB PO SCH (08:37)
[2017-07-23] MEDS: Tamsulosin HCl 0.4 MG CAP PO SCH ×2 (08:37→20:51)
[2017-07-23] MEDS ORDERED: Losartan 25 MG TAB PO SCH (09:00)
--- NOTE | 2017-07-23 11:28 | PDOC.PN ---
- Subjective Encounter Start Date: 07/23/17 Encounter Start Time: 08:15 Subjective: feels better, still has some freq of urination - Objective Resuscitation Status: Resuscitation Status FULL:Full Resuscitation MAR Reviewed: Yes Vital Signs & Weight: Vital Signs (12 hours) Temp Pulse Resp BP Pulse Ox 07/23/17 08:00 98.7 F 67 16 94 L 07/23/17 07:47 98.7 F 67 16 136/74 94 L 07/23/17 04:00 98.3 F 58 L 16 117/57 L 93 L 07/23/17 01:10 100.3 F H 70 16 129/66 93 L Weight Weight 149 lb 4.8 oz I&O: 07/22/17 07/23/17 07/24/17 06:59 06:59 06:59 Intake Total 1370 Balance 1370 Result Diagrams: 07/23/17 04:37 07/23/17 04:37 Phys Exam - Physical Examination HEENT: PERRLA, moist MMs Neck: no JVD, supple Respiratory: no wheezing, no rales Cardiovascular: RRR, no significant murmur Gastrointestinal: soft, non-tender, positive bowel sounds Musculoskeletal: no edema, pulses present Neurological: non-focal, moves all 4 limbs Psychiatric: normal affect, A&O x 3 Dx/Plan (1) Sepsis Code(s): A41.9 - SEPSIS, UNSPECIFIED ORGANISM Status: Acute (2) UTI (urinary tract infection) Status: Acute Qualifiers: Urinary tract infection type: acute cystitis Hematuria presence: without hematuria Qualified Code(s): N30.00 - Acute cystitis without hematuria (3) Seizure disorder Code(s): G40.909 - EPILEPSY, UNSP, NOT INTRACTABLE, WITHOUT STATUS EPILEPTICUS Status: Chronic (4) BPH (benign prostatic hyperplasia) Code(s): N40.0 - BENIGN PROSTATIC HYPERPLASIA WITHOUT LOWER URINRY TRACT SYMP Status: Chronic Qualifiers: Lower urinary tract symptom presence: symptoms present Comment: Continue doxazosin, flomax and finasteride (5) CAD (coronary artery disease) Code(s): I25.10 - ATHSCL HEART DISEASE OF [place] CORONARY ARTERY W/O ANG PCTRS Status: Chronic Qualifiers: Coronary Disease-Associated Artery/Lesion type: [place] artery [place] vs. transplanted heart: [place] heart Associated angina: without angina Qualified Code(s): I25.10 - Atherosclerotic heart disease of [place] coronary artery without angina pectoris Comment: stable (6) Dyslipidemia Code(s): E78.5 - HYPERLIPIDEMIA, UNSPECIFIED Status: Chronic Comment: continue statin - Plan is on cefepime and levaquin -: dc iv fluids, is tolerating oral diet -: d/w daughter and patient at bedside -: on keppra, norvasc along with meds for prostate -: likely transient bacteremia from cystoscopy done on mon * . t.max of 100 last 24hrs, prelim bld cs x2 -ve, await urine cs. Review of Systems - Medications/Allergies Allergies/Adverse Reactions: Allergies Allergy/AdvReac Type Severity Reaction Status Date / Time No Known Drug Allergies Allergy Verified 07/22/17 13:26 Medications: Current Medications Acetaminophen (Tylenol) 650 mg PO Q4H PRN PRN Reason: Headache/Fever or Pain Last Admin: 07/23/17 00:28 Dose: 650 mg Al Hydroxide/Mg Hydroxide (Maalox) 30 ml PO Q6H PRN PRN Reason: Heartburn or Indigestion Amlodipine Besylate (Norvasc) 5 mg PO QAM [facility] Last Admin: 07/23/17 08:37 Dose: 5 mg Aspirin (Ecotrin) 81 mg PO DAILY [facility] Last Admin: 07/23/17 08:37 Dose: 81 mg Atorvastatin Calcium (Lipitor) 10 mg PO HS [facility] Last Admin: 07/22/17 19:55 Dose: 10 mg Carvedilol (Coreg) 3.125 mg PO BID [facility] Last Admin: 07/23/17 08:37 Dose: 3.125 mg Doxazosin Mesylate (Cardura) 2 mg PO DAILY [facility] Last Admin: 07/23/17 08:36 Dose: 2 mg Enoxaparin Sodium (Lovenox) 30 mg SC 0900 [facility] Last Admin: 07/23/17 08:37 Dose: 30 mg Famotidine (Pepcid) 20 mg PO DAILY [facility] Last Admin: 07/23/17 08:37 Dose: 20 mg Finasteride (Proscar) 5 mg PO DAILY [facility] Last Admin: 07/23/17 08:36 Dose: 5 mg Guaifenesin/Dextromethorphan (Robitussin Dm) 15 ml PO Q4H PRN PRN Reason: Cough Levofloxacin 500 mg/ Device 100 mls @ 100 mls/hr IVPB Q2D [facility] Last Admin: 07/22/17 14:06 Dose: 100 mls Sodium Chloride (Normal Saline 0.9%) 1,000 mls @ 70 mls/hr IV .[id number] [facility] Last Admin: 07/22/17 20:01 Dose: 1,000 mls Cefepime HCl 0.5 gm/Miscellaneous Medication 1 each/ Sodium Chloride 100 mls @ 0 mls/hr IVPB 0300,1500 [facility] Last Admin: 07/23/17 02:57 Dose: 100 mls Levetiracetam (Keppra) 500 mg PO BID [facility] Last Admin: 07/23/17 08:37 Dose: 500 mg Nitroglycerin (Nitrostat) 0.4 mg SL Q5MIN PRN PRN Reason: Chest Pain Potassium Chloride (K-Dur) 40 meq PO ONE [facility] Tamsulosin HCl (Flomax) 0.4 mg PO BID [facility] Last Admin: 07/23/17 08:37 Dose: 0.4 mg
[2017-07-23] MEDS ORDERED: Potassium Chloride 20 MEQ TAB PO SCH (11:30)
[2017-07-23] MEDS: Sodium Chloride 0.9% 1,000 ML IV SCH (17:47)
[2017-07-23] MEDS: Atorvastatin Calcium 10 MG TAB PO SCH (20:52)
[2017-07-24] MEDS: Acetaminophen 325 MG TAB PO PRN (00:46)
[2017-07-24] MEDS ORDERED: Cefepime 1 GM in Sodium Chloride 0.9% 100 ML IVPB SCH (02:00)
[2017-07-24] MEDS: levETIRAcetam 500 MG TAB PO SCH (09:02)
[2017-07-24] MEDS: Enoxaparin Sodium 30 MG/0.3 ML SYRINGE SC SCH (09:02)
[2017-07-24] MEDS: Doxazosin 2 MG TAB PO SCH (09:02)
[2017-07-24] MEDS: Aspirin 81 mg Enteric Coated Tablet PO SCH (09:02)
[2017-07-24] MEDS: Tamsulosin HCl 0.4 MG CAP PO SCH (09:02)
[2017-07-24] MEDS: Famotidine 20 MG TAB PO SCH (09:02)
[2017-07-24] MEDS: Finasteride 5 MG TAB PO SCH (09:02)
[2017-07-24] MEDS: Amlodipine 5 MG TAB PO SCH (09:02)
[2017-07-24] MEDS: Carvedilol 3.125 MG TAB PO SCH (09:02)
[2017-07-24 09:07] VITALS: BP 157/74
[2017-07-24 09:20] VITALS: TEMP 98.1
[2017-07-24] MEDS: Sodium Chloride 0.9% 1,000 ML IV SCH (09:20)
--- NOTE | 2017-07-24 14:12 | DIS ---
PRIMARY CARE PHYSICIAN: Dr. Teo Owens. DATE OF ADMISSION: 07/22/2017 DATE OF DISCHARGE: 07/24/2017 DISCHARGE DISPOSITION: Home. PRIMARY DISCHARGE DIAGNOSES: 1. Sepsis. 2. Urinary tract infection due to Enterococcus. SECONDARY DISCHARGE DIAGNOSES: Seizure disorder, hypertension, dyslipidemia, coronary artery disease, and benign enlargement of prostate. PRIMARY PROCEDURE/OPERATION: None. RADIOLOGICAL INVESTIGATION: Chest x-ray normal. SIGNIFICANT LABORATORY DATA: WBC 8.8, hemoglobin 13.3, platelet 138. Sodium 140, potassium 3.1, BUN 11, creatinine 0.82, calcium 8.1. LFT normal. Lactic acid 1.3. Urinalysis suggestive of UTI. Urine culture grew Enterococcus. Blood culture negative, influenza negative. DISCHARGE MEDICATIONS: Cipro 500 mg p.o. b.i.d. for 15 days, amlodipine 5 mg p.o. daily, Lipitor 10 mg p.o. at bedtime, Coreg 3.125 mg p.o. b.i.d., Cardura 2 mg p.o. daily, Proscar 5 mg p.o. daily, Keppra 500 mg p.o. b.i.d., losartan 100 mg p.o. daily, Flomax 0.4 mg p.o. daily, and nitroglycerin 0.4 mg sublingual p.r.n. CONTRAINDICATIONS: None. CODE STATUS: FULL CODE. INPATIENT CONSULTANTS: None. ALLERGIES: No known drug allergy. DISCHARGE PLAN: Post hospital, the patient will follow up with primary care physician and urologist as instructed. HOSPITAL COURSE: An 82-year-old male who was admitted by Dr. Meyers. Please see his H&P for further detail. This patient had outpatient basis cystoscopy, this time he came for UTI symptoms. He was found with a UTI. His urine culture grew Enterococcus. While in hospital, he was treated with cefepime, Levaquin. On discharge, we changed to ciprofloxacin based on culture result. The patient was also given IV fluid while in hospital. He remained afebrile while in hospital. He was hemodynamically stable. I saw this patient personally bedside and examined, and review of systems reviewed and negative. Plan of care discussed with the family member at bedside. The patient wanted to go home today. We changed to ciprofloxacin and medication sent to his pharmacy. Overall, patient is medically stable for discharge today. Total time spent on discharge day 31 minutes LOLA
--- NOTE | 2017-07-28 16:44 | PQF ---
SUKHJINDER BERGERON SALIM NOORJIBHAI MD [id number] [id number] [id number] CLINICAL DOCUMENTATION CLARIFICATION FORM: POST DISCHARGE Please exercise your independent, professional judgment in responding to the clarification form. Clinical indicators are provided on the bottom of this form for your review. Thank you. Please check appropriate box(s): [ ] _Sepsis/UTI (Condition) is a complication of current/ recent surgery [ x ] _Sepsis/UTI (Condition) is not a complication of current /recent surgery [ ] Other diagnosis [ ] Unable to determine In addition, please specify: Present on Admission (POA): [ x] Yes [ ] No [ ] Unable to determine CLINICAL INDICATORS - HP documents Sepsis, urinary tract infection, recent instrumentation with cystoscopy. - HP 07/22/2017 Urine culture grew enterococcus - DS 07/24/2017 Temp 100.3 07/23/2017- PN 07/23/2017 WBC 11.2 07/22/17 - Laboratory RISK FACTORS Recent cystoscopy - HP 07/22/17 TREATMENT: Antibiotics_IV Levofloxacin 500mg - PN 07/23/2017 (This form is maintained as a part of the permanent medical record) 2014 [employer] All Rights Reserved Ninoska Turpin, CCS, [employer], CASC MTDD
== END 2017-07-24 11:15 | disposition home or self-care (01) | DRG 872 ==
LOC: ERS 08:27 → T4-A 13:11
PROVIDERS: ADMIT Internal Medicine; ATTEND Internal Medicine
DX: A41.81 Sepsis due to Enterococcus (principal); N39.0 Urinary tract infection, site not specified; N40.0 Benign prostatic hyperplasia without lower urinary tract symptoms; I10 Essential (primary) hypertension; E78.5 Hyperlipidemia, unspecified; I25.10 Atherosclerotic heart disease of native coronary artery without angina pectoris; G40.909 Epilepsy, unspecified, not intractable, without status epilepticus; Z79.899 Other long term (current) drug therapy; Z86.73 Personal history of transient ischemic attack (TIA), and cerebral infarction without residual deficits; Z79.02 Long term (current) use of antithrombotics/antiplatelets
CPT/HCPCS: 36415; 71045; 80048; 80053; 81003; 81015; 83605; 85025; 87040; 87077; 87086; 87186; 87804; 96365; 96367; 96368; J0692; J0696; J1580; J1650; J1956; J3370; J7050

== ENCOUNTER 2022-01-25 03:59 | Inpatient (IN) | payer MEDICARE, MEDICAID ==
[2022-01-25] MEDS ORDERED: Aspirin Chewable 81 MG TAB ONE (05:02)
[2022-01-25 05:28] LABS: #Basophils 0.1 thou/uL (0.0-0.2); #Eosinphils 0.1 thou/uL (0.0-0.7); #Lymphocytes 1.8 thou/uL (1.20-3.40); #Monocytes 0.5 thou/uL (0.11-0.59); #Neutrophils 3.5 thou/uL (1.40-6.50); %Basophils 1.1 % (0.0-1.0); %Eosinophils 1.9 % (0.0-10.0); %Lymphocytes 29.7 % (21.0-51.0); %Monocytes 7.7 % (0.0-10.0); %Neutrophils 59.6 % (42.0-75.0); Hemoglobin 15.4 g/dL (14.0-18.0); Mean Corpuscular HGB CONC 34.6 g/dL (32.0-36.0); Mean Corpuscular Hemoglobin 34.9 pg (27.0-31.0); Mean Platelet Volume 8.1 fL (7.4-10.4); Platelet Count 183 10x3/uL (130-400); Red Blood Cell (RBC) Count 4.41 mill/uL (4.70-6.10); White Blood Cell (WBC) Count 5.9 10x3/uL (4.8-10.8)
[2022-01-25 05:50] LABS: Prothrombin Time 13.2 sec (12.0-14.7)
[2022-01-25 05:53] LABS: ALT (SGPT) 31 U/L (8-55); AST (SGOT) 24 U/L (5-34); Albumin 4.3 g/dL (3.4-4.8); Alkaline Phosphatase 122 U/L (40-110); Anion Gap 12 mmol/L (10-20); BUN (Urea Nitrogen) 12 mg/dL (8.4-25.7); Bilirubin, Total 0.5 mg/dL (0.2-1.2); Calc. Creatinine Clearance 0 mL/min (70-130); Calcium 9.1 mg/dL (7.8-10.44); Carbon Dioxide 23 mmol/L (23-31); Chloride 105 mmol/L (98-107); Estimated GFR 84; Globulin 2.8 g/dL (2.4-3.5); Glucose 129 mg/dL (83-110); Protein, Total 7.1 g/dL (5.8-8.1); Sodium 136 mmol/L (136-145)
[2022-01-25] MEDS ORDERED: Bisacodyl 5 MG TAB PO PRN (10:35)
[2022-01-25] MEDS ORDERED: Acetaminophen 325 MG TAB PO PRN (10:35)
[2022-01-25] MEDS ORDERED: Senokot S 8.6-50 MG TAB PO PRN (10:35)
[2022-01-25] MEDS ORDERED: Nitroglycerin 0.4 MG TAB (25 Tab Bottle) SL PRN (10:44)
[2022-01-25 11:33] LABS: Troponin I 0.014 ng/mL (< 0.028)
[2022-01-25] MEDS ORDERED: Clopidogrel Bisulfate 75 MG TAB PO SCH (12:00)
[2022-01-25] MEDS: Lactated Ringer's 1,000 ML IV SCH ×2 (14:05→20:45)
[2022-01-25] MEDS ORDERED: Clopidogrel Bisulfate 75 MG TAB ONE (14:06)
[2022-01-25 14:25] LABS: Troponin I Less than 0.010 ng/mL (< 0.028)
[2022-01-25 15:39] LABS: Bacteria/HPF None Seen HPF (None Seen); Bilirubin Negative (Negative); Blood, Urine Negative (Negative); Clarity Clear (Clear); Glucose, Urine (Dipstick) Normal (Negative); Ketone, Urine Negative (Negative); Leukocyte Negative Leu/uL (Negative); Nitrite Negative (Negative); Protein, Urine (Dipstick) 100 mg/dL (Neg-Trace); RBC/HPF 0-3 HPF (0-3); Specific Gravity, Urine 1.023 (1.002-1.036); Squamous Epithelial None Seen HPF (0-3); Urobilinogen Normal mg/dL (Less than 2); WBC/HPF 0-3 HPF (0-3)
[2022-01-25 18:25] VITALS: BMI 27.4
[2022-01-25] MEDS: levETIRAcetam 500 MG TAB PO SCH (20:44)
[2022-01-25] MEDS: Atorvastatin Calcium 20 MG TAB PO SCH (20:44)
[2022-01-25] MEDS: Famotidine 20 MG TAB PO SCH (20:44)
[2022-01-25] MEDS ORDERED: Atorvastatin Calcium 20 MG TAB PO SCH (21:00)
[2022-01-26 04:50] LABS: #Basophils 0.1 thou/uL (0.0-0.2); #Eosinphils 0.2 thou/uL (0.0-0.7); #Lymphocytes 1.8 thou/uL (1.20-3.40); #Monocytes 0.8 thou/uL (0.11-0.59); #Neutrophils 5.4 thou/uL (1.40-6.50); %Basophils 0.8 % (0.0-1.0); %Eosinophils 2.6 % (0.0-10.0); %Lymphocytes 21.4 % (21.0-51.0); %Monocytes 9.2 % (0.0-10.0); %Neutrophils 65.9 % (42.0-75.0); Hemoglobin 14.6 g/dL (14.0-18.0); Mean Corpuscular HGB CONC 33.5 g/dL (32.0-36.0); Mean Corpuscular Hemoglobin 34.7 pg (27.0-31.0); Mean Platelet Volume 7.9 fL (7.4-10.4); Platelet Count 184 10x3/uL (130-400); RBC Distribution Width 12.3 % (11.5-14.5); White Blood Cell (WBC) Count 8.2 10x3/uL (4.8-10.8)
[2022-01-26 05:40] LABS: Anion Gap 12 mmol/L (10-20); BUN (Urea Nitrogen) 12 mg/dL (8.4-25.7); Calc. Creatinine Clearance 56 mL/min (70-130); Calcium 8.9 mg/dL (7.8-10.44); Carbon Dioxide 23 mmol/L (23-31); Chloride 105 mmol/L (98-107); Estimated GFR 82; Glucose 96 mg/dL (83-110); Potassium 3.3 mmol/L (3.5-5.1); Sodium 137 mmol/L (136-145)
[2022-01-26] MEDS: Lactated Ringer's 1,000 ML IV SCH (08:38)
[2022-01-26] MEDS: levETIRAcetam 500 MG TAB PO SCH ×2 (08:38→19:47)
[2022-01-26] MEDS: Doxazosin 2 MG TAB PO SCH (08:38)
[2022-01-26] MEDS: Clopidogrel Bisulfate 75 MG TAB PO SCH (08:38)
[2022-01-26] MEDS: Aspirin 81 mg Enteric Coated Tablet PO SCH (08:38)
[2022-01-26] MEDS: Famotidine 20 MG TAB PO SCH ×2 (08:38→19:47)
[2022-01-26] MEDS: Finasteride 5 MG TAB PO SCH (08:39)
[2022-01-26] MEDS: Enoxaparin Sodium 40 MG/0.4 ML SYRINGE SC SCH (08:39)
[2022-01-26] MEDS: Amlodipine 10 MG TAB PO SCH (08:39)
[2022-01-26] MEDS: Losartan 25 MG TAB PO SCH (08:39)
[2022-01-26] MEDS ORDERED: Amlodipine 10 MG TAB PO SCH (09:00)
[2022-01-26] MEDS ORDERED: FLU VACC QS2022-23(65YR UP)/PF 240 MCG/0.7 ML SYRINGE IM ONE (09:00)
[2022-01-26] MEDS: Atorvastatin Calcium 20 MG TAB PO SCH (19:47)
[2022-01-27 07:51] VITALS: BP 139/76; TEMP 97.6
[2022-01-27] MEDS ORDERED: Potassium Chloride 20 MEQ TAB PO SCH (08:00)
[2022-01-27] MEDS: Clopidogrel Bisulfate 75 MG TAB PO SCH (09:22)
[2022-01-27] MEDS: levETIRAcetam 500 MG TAB PO SCH (09:22)
[2022-01-27] MEDS: Aspirin 81 mg Enteric Coated Tablet PO SCH (09:22)
[2022-01-27] MEDS: Amlodipine 10 MG TAB PO SCH (09:23)
[2022-01-27] MEDS: Famotidine 20 MG TAB PO SCH (09:23)
[2022-01-27] MEDS: Finasteride 5 MG TAB PO SCH (09:24)
[2022-01-27] MEDS: Losartan 25 MG TAB PO SCH (09:24)
[2022-01-27] MEDS: Enoxaparin Sodium 40 MG/0.4 ML SYRINGE SC SCH (09:24)
[2022-01-27] MEDS: Doxazosin 2 MG TAB PO SCH (09:24)
== END 2022-01-27 10:20 | disposition home or self-care (01) | DRG 100 ==
LOC: ERS 03:59 → ERHOLD 06:33 → 2SW 17:35
PROVIDERS: ADMIT Hospitalist; ATTEND Hospitalist
DX: G40.909 Epilepsy, unspecified, not intractable, without status epilepticus (principal); I77.71 Dissection of carotid artery; G93.41 Metabolic encephalopathy; Z20.822 Contact with and (suspected) exposure to COVID-19; I25.10 Atherosclerotic heart disease of native coronary artery without angina pectoris; E78.5 Hyperlipidemia, unspecified; I67.1 Cerebral aneurysm, nonruptured; N40.0 Benign prostatic hyperplasia without lower urinary tract symptoms; I10 Essential (primary) hypertension; I49.3 Ventricular premature depolarization; I44.0 Atrioventricular block, first degree; Z86.73 Personal history of transient ischemic attack (TIA), and cerebral infarction without residual deficits; Z79.899 Other long term (current) drug therapy; Z86.74 Personal history of sudden cardiac arrest
CPT/HCPCS: 36415; 36416; 70450; 70496; 70498; 70551; 71045; 80048; 80053; 81001; 82533; 84443; 84484; 85025; 85610; 85730; 87040; 87086; 93005; 93010; 95816; 95819; 95957; J1650; J7120; U0003; U0005

== ENCOUNTER 2022-09-13 12:45 | Outpatient (CLI) | payer MEDICARE, MEDICAID | END 2022-09-13 12:46 | disposition home or self-care (01) | LOC: ULT 12:45 | PROVIDERS: ATTEND Psychiatry & Neurology Neurology | DX: G40.209 Localization-related (focal) (partial) symptomatic epilepsy and epileptic syndromes with complex partial seizures, not intractable, without status epilepticus (principal); I35.1 Nonrheumatic aortic (valve) insufficiency | CPT/HCPCS: 93306 ==